=== PATIENT | male | born 1955 | race Caucasian/White ===

== ENCOUNTER → 2018-01-29 08:49 | Outpatient (CLI) | payer OTHER, SELFPAY ==
[2018-01-29 10:06] LABS: Add Manual Diff / Slide Review NO; Basophils Percent Auto 2.6 % (0-2); Eosinophils Percent Auto 11.2 % (2-4); Hematocrit 40.6 % (41-53); Hemoglobin 13.9 g/dL (13.5-17.5); Lymphocytes Percent Auto 13.3 % (25-40); Mean Corpuscular HGB Conc 34.2 % (30-36); Mean Corpuscular Hemoglobin 32.6 PG (26-34); Mean Corpuscular Volume 95.5 fL (80-100); Monocytes Percent Auto 12.2 % (3-14); Neutrophils Absolute Auto 2200 /uL (3000-5900); Neutrophils Percent Auto 60.7 % (50-75); Platelet Count 234 X10^3/uL (150-400); Red Blood Cell Count 4.25 X10^6/uL (4.5-5.9); Red Cell Distribution Width 12.8 % (11.6-14.8); White Blood Cell Count 3.6 X10^3/uL (4.5-11.0)
[2018-01-29 11:12] LABS: Alanine Aminotransferase 44 IU/L (21-72); Albumin 4.1 g/dL (3.5-5.0); Albumin Globulin Ratio 1.6 (1.0-2.8); Alkaline Phosphatase 71 U/L (38-126); Aspartate Aminotransferase 39 IU/L (17-59); Bilirubin Total 0.6 mg/dL (0.2-1.3); Blood Urea Nitrogen 14 mg/dL (9-20); Calcium 9.3 mg/dL (8.4-10.2); Carbon Dioxide 32 mmol/L (22-32); Chloride 102 mmol/L (98-107); Cholesterol 195 mg/dL (140-199); Estimated Glomerular Filt Rate > 60.0 mL/min (>60); Globulin 2.6 g/dL (1.7-4.1); Glucose 81 mg/dL (80-110); HEMOLYSIS < 15 (0-50); Potassium 4.6 mmol/L (3.4-5.1); Sodium 142 mmol/L (137-145); Total Protein 6.7 g/dL (6.3-8.2); Triglycerides 61 mg/dL (35-150)
[2018-01-29 11:26] LABS: HDL Cholesterol 126 mg/dL (40-60); LDL Cholesterol Calculated 57 mg/dL (<100)
[2018-01-29 11:43] LABS: Prostate Specific Antigen Scrn 0.575 ng/mL (0.1-4.0)
== END ==
PROVIDERS: PCP Internal Medicine; Visit Provider Internal Medicine
DX: I10 Essential (primary) hypertension (principal); E78.00 Pure hypercholesterolemia, unspecified; E29.1 Testicular hypofunction
CPT/HCPCS: 36415; 80053; 80061; 84403; 85025; G0103

== ENCOUNTER → 2018-08-28 08:50 | Outpatient (CLI) | payer OTHER, SELFPAY ==
[2018-08-28 10:09] LABS: Cholesterol 253 mg/dL (140-199); HDL Cholesterol 84 mg/dL (40-60); LDL Cholesterol Calculated 147 mg/dL (<100); Triglycerides 108 mg/dL (35-150)
[2018-08-28 10:41] LABS: Prostate Specific Antigen 0.594 ng/mL (0.10-4.00)
== END ==
PROVIDERS: PCP Internal Medicine; Visit Provider Specialist
DX: E78.00 Pure hypercholesterolemia, unspecified (principal); N40.1 Benign prostatic hyperplasia with lower urinary tract symptoms
CPT/HCPCS: 36415; 80061; 84153

== ENCOUNTER → 2018-10-03 08:30 | Outpatient (CLI) | payer OTHER, SELFPAY | PROVIDERS: PCP Internal Medicine; Visit Provider Internal Medicine | DX: E29.1 Testicular hypofunction (principal) | CPT/HCPCS: 36415; 84403 ==

== ENCOUNTER → 2018-11-03 13:51 | Outpatient (CLI) | payer OTHER, SELFPAY ==
[2018-11-03 15:06] LABS: Add Manual Diff / Slide Review NO; Basophils Absolute Auto 100 /uL (0-100); Basophils Percent Auto 1.1 % (0-2); Eosinophils Absolute Auto 200 /uL (0-450); Eosinophils Percent Auto 3.8 % (2-4); Hematocrit 40.9 % (41-53); Hemoglobin 13.9 g/dL (13.5-17.5); Lymphocytes Absolute Auto 700 /uL (1100-4500); Lymphocytes Percent Auto 12.6 % (25-40); Mean Corpuscular HGB Conc 33.9 % (30-36); Mean Corpuscular Hemoglobin 32.3 PG (26-34); Mean Corpuscular Volume 95.2 fL (80-100); Monocytes Absolute Auto 500 /uL (0-900); Monocytes Percent Auto 9.2 % (3-14); Neutrophils Absolute Auto 3800 /uL (1500-7000); Neutrophils Percent Auto 73.3 % (50-75); Platelet Count 250 X10^3/uL (150-400); Red Blood Cell Count 4.29 X10^6/uL (4.5-5.9); Red Cell Distribution Width 13.4 % (11.6-14.8); White Blood Cell Count 5.2 X10^3/uL (4.5-11.0)
[2018-11-03 16:53] LABS: Thyroid Stimulating Hormone 1.49 uIU/mL (0.47-4.68)
== END ==
PROVIDERS: PCP Internal Medicine; Visit Provider Internal Medicine
DX: R53.83 Other fatigue (principal)
CPT/HCPCS: 36415; 84443; 85025

== ENCOUNTER → 2018-11-10 16:38 | Outpatient (CLI) | payer OTHER, SELFPAY ==
[2018-11-10 18:24] LABS: Alanine Aminotransferase 15 IU/L (21-72); Albumin 4.1 g/dL (3.5-5.0); Albumin Globulin Ratio 1.5 (1.0-2.8); Alkaline Phosphatase 73 U/L (38-126); Aspartate Aminotransferase 26 IU/L (17-59); BUN Creatinine Ratio 21.4 (6-22); Bilirubin Total 0.6 mg/dL (0.2-1.3); Blood Urea Nitrogen 15 mg/dL (9-20); Calcium 9.5 mg/dL (8.4-10.2); Carbon Dioxide 31 mmol/L (22-32); Chloride 100 mmol/L (98-107); Estimated Glomerular Filt Rate > 60.0 mL/min (>60); Globulin 2.7 g/dL (1.7-4.1); Glucose 80 mg/dL (80-110); HEMOLYSIS < 15 (0-50); Potassium 4.5 mmol/L (3.4-5.1); Sodium 139 mmol/L (137-145); Total Protein 6.8 g/dL (6.3-8.2)
[2018-11-10 18:53] LABS: TSH w/ Reflex to FT4 1.32 uIU/mL (0.47-4.68)
== END ==
PROVIDERS: PCP Internal Medicine; Visit Provider Internal Medicine
DX: I10 Essential (primary) hypertension (principal); R53.83 Other fatigue
CPT/HCPCS: 36415; 80053; 84443

== ENCOUNTER → 2018-11-27 08:23 | Outpatient (CLI) | payer OTHER, SELFPAY ==
[2018-11-27 09:29] LABS: Albumin 3.8 g/dL (3.5-5.0)
[2018-11-29 11:43] LABS: Sex Hormone Binding Globulin 33 nmol/L (22-77)
[2018-11-30 20:14] LABS: Testosterone Free 30.7 pg/mL (35.0-155.0); Testosterone Total 232 ng/dL (250-1100)
== END ==
PROVIDERS: PCP Internal Medicine; Visit Provider Specialist
DX: F52.21 Male erectile disorder (principal)
CPT/HCPCS: 36415; 82040; 84270; 84402; 84403

== ENCOUNTER → 2019-02-11 09:14 | Outpatient (CLI) | payer OTHER, SELFPAY ==
[2019-02-11 11:18] LABS: Albumin 3.9 g/dL (3.5-5.0); Cholesterol 237 mg/dL (140-199); HDL Cholesterol 82 mg/dL (40-60); LDL Cholesterol Calculated 141 mg/dL (<100); Triglycerides 68 mg/dL (35-150)
[2019-02-13 20:33] LABS: Sex Hormone Binding Globulin 40 nmol/L (22-77)
[2019-02-15 14:09] LABS: Testosterone Free 33.4 pg/mL (35.0-155.0); Testosterone Total 197 ng/dL (250-1100)
== END ==
PROVIDERS: PCP Internal Medicine; Visit Provider Specialist
DX: E29.1 Testicular hypofunction (principal); E78.00 Pure hypercholesterolemia, unspecified; F52.21 Male erectile disorder
CPT/HCPCS: 36415; 80061; 82040; 84270; 84402; 84403

== ENCOUNTER → 2019-06-19 16:22 | Outpatient (CLI) | payer OTHER, SELFPAY ==
[2019-06-19 18:05] LABS: Prostate Specific Antigen 0.686 ng/mL (0.10-4.00)
== END ==
PROVIDERS: PCP Internal Medicine; Visit Provider Specialist
DX: N40.1 Benign prostatic hyperplasia with lower urinary tract symptoms (principal); E29.1 Testicular hypofunction
CPT/HCPCS: 36415; 84153; 84403

== ENCOUNTER → 2019-06-23 09:07 | Outpatient (CLI) | payer OTHER, SELFPAY ==
[2019-06-23 10:46] LABS: Alanine Aminotransferase 30 IU/L (<50); Aspartate Aminotransferase 29 IU/L (17-59); Cholesterol 126 mg/dL (140-199); HDL Cholesterol 40 mg/dL (40-60); LDL Cholesterol Calculated 75 mg/dL (<100); Triglycerides 54 mg/dL (35-150)
== END ==
PROVIDERS: PCP Internal Medicine; Visit Provider Internal Medicine
DX: E78.2 Mixed hyperlipidemia (principal)
CPT/HCPCS: 36415; 80061; 84450; 84460

== ENCOUNTER → 2019-07-06 10:09 | Outpatient (CLI) | payer OTHER, SELFPAY | PROVIDERS: PCP Internal Medicine; Referring Provider Internal Medicine; Visit Provider Internal Medicine | DX: M85.852 Other specified disorders of bone density and structure, left thigh (principal); E29.1 Testicular hypofunction; Z87.891 Personal history of nicotine dependence | CPT/HCPCS: 77080 ==

== ENCOUNTER → 2020-02-10 18:28 | Outpatient (ROUT) | payer OTHER, SELFPAY ==
[2020-02-10 19:54] LABS: Add Manual Diff / Slide Review NO; Basophils Absolute Auto 0 /uL (0-100); Basophils Percent Auto 1.1 % (0-2); Eosinophils Absolute Auto 300 /uL (0-450); Eosinophils Percent Auto 7.6 % (2-4); Hematocrit 43.9 % (41-53); Hemoglobin 14.9 g/dL (13.5-17.5); Lymphocytes Absolute Auto 1100 /uL (1100-4500); Lymphocytes Percent Auto 23.9 % (25-40); Mean Corpuscular HGB Conc 33.9 % (30-36); Mean Corpuscular Hemoglobin 32.1 PG (26-34); Mean Corpuscular Volume 94.4 fL (80-100); Monocytes Absolute Auto 500 /uL (0-900); Monocytes Percent Auto 10.7 % (3-14); Neutrophils Absolute Auto 2600 /uL (1500-7000); Neutrophils Percent Auto 56.7 % (50-75); Platelet Count 228 X10^3/uL (150-400); Red Blood Cell Count 4.65 X10^6/uL (4.5-5.9); Red Cell Distribution Width 12.9 % (11.6-14.8); White Blood Cell Count 4.5 X10^3/uL (4.5-11.0)
[2020-02-10 20:06] LABS: Alanine Aminotransferase 36 IU/L (<50); Albumin 4.2 g/dL (3.5-5.0); Albumin Globulin Ratio 1.5 (1.0-2.8); Alkaline Phosphatase 78 U/L (38-126); Aspartate Aminotransferase 41 IU/L (17-59); BUN Creatinine Ratio 14.3 (6-22); Bilirubin Total 0.8 mg/dL (0.2-1.3); Blood Urea Nitrogen 11 mg/dL (9-20); Calcium 9.3 mg/dL (8.4-10.2); Carbon Dioxide 29 mmol/L (22-32); Chloride 100 mmol/L (98-107); Estimated Glomerular Filt Rate > 60.0 mL/min (>60); Globulin 2.8 g/dL (1.7-4.1); Glucose 93 mg/dL (80-110); HEMOLYSIS < 15 (0-50); Potassium 4.1 mmol/L (3.4-5.1); Sodium 135 mmol/L (137-145)
== END ==
PROVIDERS: PCP Internal Medicine; Visit Provider Internal Medicine
DX: E78.2 Mixed hyperlipidemia (principal); E29.1 Testicular hypofunction; F32.9 Major depressive disorder, single episode, unspecified; I10 Essential (primary) hypertension
CPT/HCPCS: 80053; 85025

== ENCOUNTER → 2020-06-14 10:14 | Outpatient (CLI) | payer MEDICARE, SELFPAY ==
[2020-06-14 12:09] LABS: Prostate Specific Antigen 0.906 ng/mL (0.10-4.00)
[2020-06-19 22:36] LABS: Percent Free Testosterone 4.07 % (1.50-4.20); Testosterone Free 23.15 ng/dL (5.00-21.00); Testosterone Total 568.9 ng/dL (264.0-916.0)
== END ==
PROVIDERS: PCP Internal Medicine; Referring Provider Internal Medicine; Visit Provider Specialist
DX: R79.89 Other specified abnormal findings of blood chemistry (principal); Z12.5 Encounter for screening for malignant neoplasm of prostate
CPT/HCPCS: 36415; 84153; 84402; 84403; G0103

== ENCOUNTER → 2020-08-30 11:48 | Outpatient (CLI) | payer MEDICARE, SELFPAY ==
[2020-08-31 19:20] LABS: Hep C Virus Ab w/Reflex Quant NEGATIVE s/c (NEGATIVE)
== END ==
PROVIDERS: PCP Internal Medicine; Referring Provider Internal Medicine; Visit Provider Internal Medicine
DX: Z00.00 Encounter for general adult medical examination without abnormal findings (principal)
CPT/HCPCS: 36415; 86803

== ENCOUNTER → 2020-09-13 09:07 | Outpatient (CLI) | payer MEDICARE, SELFPAY ==
--- NOTE | 2020-09-13 | DI.US.S_ITS ---
PROCEDURE: US ABD AORTA ANEURYSM SCREEN INDICATIONS: ABDOMINAL AORTIC ANEURYSM SCREENING TECHNIQUE: Real time scanning was performed of the aorta and iliac arteries, with image documentation. COMPARISON: None. FINDINGS: Aorta: Proximal aortic diameter measures 2 cm. Mid-aorta measures 1.9 cm. Distal aortic diameter is 1.8 cm. Iliac arteries: Right common iliac artery measures 1 cm. Left common iliac artery measures 0.8 cm. Incidental note is made of an umbilical hernia which appears reducible and most likely contains fat. The hernia neck measures 0.6 x 0.8 cm. IMPRESSION: Negative for aneurysm. Apparent fat containing periumbilical hernia incidentally noted. Dictated by: Sukhi Katz M.D. on 09/13/2020 at 9:06 Approved by: Sukhi Katz M.D. on 09/13/2020 at 9:08
== END ==
PROVIDERS: PCP Internal Medicine; Referring Provider Internal Medicine; Visit Provider Internal Medicine
DX: Z13.6 Encounter for screening for cardiovascular disorders (principal); K42.9 Umbilical hernia without obstruction or gangrene
CPT/HCPCS: 76706

== ENCOUNTER 2021-01-12 09:58 | Emergency (ER) | payer MEDICARE, SELFPAY ==
[2021-01-12 10:05] VITALS: BP 176/90; PULSE 75; O2SAT 98
--- NOTE | 2021-01-12 10:05 | DI.RAD.S_ITS ---
PROCEDURE: XR CHEST 1V INDICATIONS: chest pain TECHNIQUE: One view of the chest was acquired. COMPARISON: None. FINDINGS: Surgical changes and devices: None. Lungs and pleura: Lungs are clear. No pleural effusions or pneumothorax. Mild hyperinflation noted. Mediastinum: Mediastinal contours appear normal. Heart size is normal. Bones and chest wall: No suspicious bony lesions. Overlying soft tissues appear unremarkable. IMPRESSION: Mild hyperinflation without acute cardiopulmonary findings Approved by: López Hollingsworth M.D. on 01/12/2021 at 10:31
[2021-01-12 10:06] VITALS: BP 176/90; PULSE 75; RESP 15; TEMP 36.9; O2SAT 96; BMI 24.4
[2021-01-12 10:13] LABS: Add Manual Diff / Slide Review NO; Basophils Absolute Auto 100 /uL (0-100); Basophils Percent Auto 0.8 % (0-2); Eosinophils Absolute Auto 200 /uL (0-450); Eosinophils Percent Auto 2.3 % (2-4); Hematocrit 44.3 % (41-53); Hemoglobin 15.1 g/dL (13.5-17.5); Lymphocytes Absolute Auto 700 /uL (1100-4500); Lymphocytes Percent Auto 10.5 % (25-40); Mean Corpuscular Hemoglobin 32.5 PG (26-34); Mean Corpuscular Volume 95.5 fL (80-100); Monocytes Absolute Auto 900 /uL (0-900); Monocytes Percent Auto 12.7 % (3-14); Neutrophils Absolute Auto 5200 /uL (1500-7000); Neutrophils Percent Auto 73.7 % (50-75); Platelet Count 201 X10^3/uL (150-400); Red Blood Cell Count 4.63 X10^6/uL (4.5-5.9); White Blood Cell Count 7.1 X10^3/uL (4.5-11.0)
--- NOTE | 2021-01-12 10:24 | ED_ITS ---
HPI - Chest Pain General Chief Complaint: Chest Pain Stated Complaint: Chest Pain/Pressure, Hurts when takes breath Time Seen by Provider: 01/12/21 10:06 Source: patient Mode of arrival: Ambulatory Limitations: no limitations History of Present Illness HPI narrative: 65-year-old male here for evaluation of right-sided chest/back discomfort that is also radiating to his neck. He states that it was a gradual onset that started yesterday. He has had some sort of discomfort for the past 24 hours however does get somewhat worse when he takes a deep breath. Not worse when he touches the area. Has never had heart issues in the past. Does have a history of high blood pressure. Has not tried anything for the symptoms prior to arrival. He did take his blood pressure medicines this morning. Related Data Home Medications Medication Instructions Recorded Confirmed amlodipine PO 01/04/18 08/12/19 blood-glucose meter [Retention Education MISC 01/04/18 08/12/19 Blood Glucose Monitor] irbesartan PO 01/04/18 08/12/19 statin PO 01/04/18 08/12/19 calcium carbonate 500 mg calcium 500 mg PO DAILY 06/24/20 (1,250 mg) tablet (Calcium 500) cholecalciferol (vitamin D3) 10 10 mcg PO DAILY 06/24/20 mcg (400 unit) capsule coenzyme Q10 10 mg capsule (Co 10 mg PO ONCE 06/24/20 Q-10) [id number] 200 mg-dha 125 1 cap PO DAILY 06/24/20 mg-epa 50 nl-jios-ngrd-zeax capsule rosuvastatin 20 mg tablet 20 mg PO DAILY 06/24/20 testosterone 20.25 mg/1.25 gram 1 pump TOPICAL DAILY 06/24/20 (1.62 %) transdermal gel pump Previous Rx's Medication Instructions Recorded sildenafil (pulm.hypertension) 20 20 mg PO TID PRN #30 tab 07/08/20 mg tablet Allergies Allergy/AdvReac Type Severity Reaction Status Date / Time Penicillins Allergy Unknown unknown Verified 01/12/21 10:16 Review of Systems Constitutional Constitutional: Reports as per HPI Eyes Eyes: Reports system reviewed and no additional complaints, except as documented ENT Ears, Nose, Mouth, and Throat: Reports system reviewed and no additional complaints, except as documented Cardiovascular Cardiovascular: Reports as per HPI Respiratory Respiratory: Reports as per HPI Gastrointestinal Gastrointestinal: Reports system reviewed and no additional complaints, except as documented Genitourinary Genitourinary: Reports system reviewed and no additional complaints, except as documented Musculoskeletal Musculoskeletal: Reports system reviewed and no additional complaints, except as documented Integumentary/Breasts Skin/Breast: Reports system reviewed and no additional complaints, except as documented Neurologic Neurologic: Reports system reviewed and no additional complaints, except as documented Hematologic/Lymphatic On Anticoagulants: No Allergic/Immunologic Allergic/Immunologic: Reports system reviewed and no additional complaints, except as documented Patient History Medical History BPH w urinary obs/LUTS Erectile dysfunction Finger laceration Hypertension Hypogonadism in male Surgical History History of circumcision History of vasectomy Family History Mother Cancer Father Coronary artery disease Social History marital status: number of children: 1 occupational status: previously employed Smoking Status: Former smoker alcohol intake: current caffeine: Yes Smoking Status: Former smoker alcohol intake frequency: holidays/special occasions only Substance Use Type: does not use Exam Initial Vital Signs Initial Vital Signs: Vital Signs Pulse Rate 75 01/12/21 10:05 Blood Pressure 176/90 H 01/12/21 10:05 Pulse Oximetry 98 01/12/21 10:05 Const General: cooperative and healthy appearing [facility] Head: normal to inspection and normocephalic Eyes General: appearance normal, both eyes and all related structures Neck Neck: normal visual inspection Chest Chest: No crepitus and No tenderness Resp Effort & Inspection: normal respiratory effort Auscultation: clear to auscultation bilaterally Cardio Rate: regular rate Rhythm: regular rhythm GI Inspection: normal to inspection Skin General: no rashes or lesions noted Neuro General: patient alert, patient awake and moves all extremities Extrem General: normal to inspection and capillary refill normal Psych Appearance: grossly normal and well kempt Course Orders Ordered: ED Orders 01/12/21 10:05 XR chest 1V Stat EKG-12 Lead Stat 01/12/21 10:10 BNP [NT-proBNP (BNP-Adult 18+)] Stat C-Reactive Protein Quant Stat Complete Blood Count AUTO DIFF Stat Comprehensive Metabolic Panel Stat D Dimer Stat Erythrocyte Sedimentation Rate Stat Lipase Stat Troponin & CK Cardiac Panel Stat Vital Signs Vital signs: Vital Signs - 8 hr 01/12/21 10:05 01/12/21 10:06 01/12/21 10:30 Temperature 98.5 F Pulse Rate 75 75 75 Respiratory Rate 15 15 Blood Pressure 176/90 H 176/90 H 144/89 H Pulse Oximetry 98 96 100 01/12/21 11:00 Temperature Pulse Rate 74 Respiratory Rate 16 Blood Pressure 146/85 H Pulse Oximetry 99 MDM - Chest Pain Lab Data Result diagrams: 01/12/21 10:10 01/12/21 10:10 Labs: Lab Results 01/12/21 01/12/21 01/12/21 Range/Units 10:10 10:10 10:10 WBC 7.1 (4.5-11.0) X10^3/uL RBC 4.63 (4.5-5.9) X10^6/uL Hgb 15.1 (13.5-17.5) g/dL Hct 44.3 (41-53) % MCV 95.5 (80-100) fL MCH 32.5 (26-34) PG MCHC 34.0 (30-36) % RDW 14.0 (11.6-14.8) % Plt Count 201 (150-400) X10^3/uL Neut % (Auto) 73.7 (50-75) % Lymph % (Auto) 10.5 L (25-40) % [place] % (Auto) 12.7 (3-14) % Eos % (Auto) 2.3 (2-4) % Baso % (Auto) 0.8 (0-2) % Neut # (Auto) 5200 (3390-6867) /uL Lymph # (Auto) 700 L (5480-2687) /uL [place] # (Auto) 900 (0-900) /uL Eos # (Auto) 200 (0-450) /uL Baso # (Auto) 100 (0-100) /uL ESR (0-15) MM/HR D-Dimer (<230) ng/mL Sodium 136 L (137-145) mmol/L Potassium 3.6 (3.4-5.1) mmol/L Chloride 98 (98-107) mmol/L Carbon Dioxide 32 (22-32) mmol/L BUN 12 (9-20) mg/dL Creatinine 0.77 (0.66-1.25) mg/dL Estimated GFR > 60.0 (>60) mL/min BUN/Creatinine Ratio 15.6 (6-22) Glucose 104 (80-110) mg/dL Calcium 9.8 (8.4-10.2) mg/dL Total Bilirubin 1.2 (0.2-1.3) mg/dL AST 34 (17-59) IU/L ALT 28 (<50) IU/L Alkaline Phosphatase 70 (38-126) U/L Total Creatine Kinase 63 (55-170) U/L CK-MB (CK-2) TNP CK-MB (CK-2) Rel Index TNP Troponin I < 0.012 (0.01-0.034) ng/mL C-Reactive Protein (<1.0) mg/dL NT-Pro-B Natriuret Pep 51 (<125) pg/mL Total Protein 7.4 (6.3-8.2) g/dL Albumin 4.2 (3.5-5.0) g/dL Globulin 3.2 (1.7-4.1) g/dL Albumin/Globulin Ratio 1.3 (1.0-2.8) Lipase 42 (23-300) U/L 01/12/21 01/12/21 01/12/21 Range/Units 10:10 10:10 10:10 WBC (4.5-11.0) X10^3/uL RBC (4.5-5.9) X10^6/uL Hgb (13.5-17.5) g/dL Hct (41-53) % MCV (80-100) fL MCH (26-34) PG MCHC (30-36) % RDW (11.6-14.8) % Plt Count (150-400) X10^3/uL Neut % (Auto) (50-75) % Lymph % (Auto) (25-40) % [place] % (Auto) (3-14) % Eos % (Auto) (2-4) % Baso % (Auto) (0-2) % Neut # (Auto) (9427-6493) /uL Lymph # (Auto) (3180-0212) /uL [place] # (Auto) (0-900) /uL Eos # (Auto) (0-450) /uL Baso # (Auto) (0-100) /uL ESR 11 (0-15) MM/HR D-Dimer < 200 (<230) ng/mL Sodium (137-145) mmol/L Potassium (3.4-5.1) mmol/L Chloride (98-107) mmol/L Carbon Dioxide (22-32) mmol/L BUN (9-20) mg/dL Creatinine (0.66-1.25) mg/dL Estimated GFR (>60) mL/min BUN/Creatinine Ratio (6-22) Glucose (80-110) mg/dL Calcium (8.4-10.2) mg/dL Total Bilirubin (0.2-1.3) mg/dL AST (17-59) IU/L ALT (<50) IU/L Alkaline Phosphatase (38-126) U/L Total Creatine Kinase (55-170) U/L CK-MB (CK-2) CK-MB (CK-2) Rel Index Troponin I (0.01-0.034) ng/mL C-Reactive Protein 1.1 H (<1.0) mg/dL NT-Pro-B Natriuret Pep (<125) pg/mL Total Protein (6.3-8.2) g/dL Albumin (3.5-5.0) g/dL Globulin (1.7-4.1) g/dL Albumin/Globulin Ratio (1.0-2.8) Lipase (23-300) U/L ECG Data Attestation: I personally reviewed and interpreted this ECG as follows: Interpretation: Initial EKG Sinus rhythm Ventricular rate of [address] elevations in V2 V3 without reciprocal changes Most likely early repolarization Repeat EKG Sinus rhythm Ventricular rate 99 Elevations in V2 V3 to 3 AVF No reciprocal changes MDM Narrative Medical decision making narrative: Patient has had consistent symptoms for the past 24 hours. His troponin is negative. His chest x-ray does not show any signs of a pneumonia nor pneumothorax. A bedside ultrasound also confirms no pneumothorax. He has no skin rashes over the area that would make us concerned for zoster. His LFTs are unremarkable. He has no right upper quadrant pain. I have low suspicion for referred pain from a intra-abdominal issue. He is not hypoxic. Not febrile. Not coughing. I did consider dissection however his D- dimer is negative, he has equal pulses bilateral, no neurologic changes. Have low suspicion for pulmonary embolism. Unsure the exact etiology of the patient's symptoms however feel patient could be safely discharged home. He will use ibuprofen as he does fit the diagnosis of pleurisy. No indication for antibiotics. He was given strict return precautions and follow-up instructions. He expressed understanding and agreement. Discharge Plan Departure Patient Disposition: Home Clinical Impression: Pleurisy, Atypical chest pain Instructions: Pleurisy Activity Restrictions/Additional Instructions: Your workup here in the emergency department is very reassuring. I recommend that you do start an anti-inflammatory such as Motrin/Naprosyn. Contact your primary doctor for follow-up and return to the emergency department for any new or worsening symptoms like we discussed. Prescriptions: No Action amlodipine PO RF: 0 blood-glucose meter MISC RF: 0 irbesartan PO RF: 0 statin PO RF: 0 rosuvastatin 20 mg tablet 20 mg PO DAILY RF: 0 testosterone 20.25 mg/1.25 gram (1.62 %) gel in metered-dose pump 1 pump topical DAILY RF: 0 coenzyme Q10 [Co Q-10] 10 mg capsule 10 mg PO ONCE RF: 0 calcium carbonate [Calcium 500] 500 mg calcium (1,250 mg) tablet 500 mg PO DAILY RF: 0 cholecalciferol (vitamin D3) 10 mcg (400 unit) capsule 10 mcg PO DAILY RF: 0 qp-rx-px4-asj-sem-yxmj-lut-george 200-125-50 mg capsule 1 cap PO DAILY RF: 0 sildenafil (pulm.hypertension) 20 mg tablet 20 mg PO TID PRN (Reason: sexual activity) Qty: 30 RF: 12 Referrals: Abdulkadir Ring MD [Primary Care Provider] -
[2021-01-12 10:30] VITALS: BP 144/89; PULSE 75; RESP 15; O2SAT 100
[2021-01-12 10:31] LABS: Alanine Aminotransferase 28 IU/L (<50); Albumin 4.2 g/dL (3.5-5.0); Albumin Globulin Ratio 1.3 (1.0-2.8); Alkaline Phosphatase 70 U/L (38-126); Aspartate Aminotransferase 34 IU/L (17-59); BUN Creatinine Ratio 15.6 (6-22); Bilirubin Total 1.2 mg/dL (0.2-1.3); Blood Urea Nitrogen 12 mg/dL (9-20); Calcium 9.8 mg/dL (8.4-10.2); Carbon Dioxide 32 mmol/L (22-32); Chloride 98 mmol/L (98-107); Creatine Kinase 63 U/L (55-170); Estimated Glomerular Filt Rate > 60.0 mL/min (>60); Globulin 3.2 g/dL (1.7-4.1); Glucose 104 mg/dL (80-110); HEMOLYSIS < 15 (0-50); Lipase 42 U/L (23-300); Potassium 3.6 mmol/L (3.4-5.1); Sodium 136 mmol/L (137-145); Total Protein 7.4 g/dL (6.3-8.2)
[2021-01-12 10:35] LABS: C-Reactive Protein Quant 1.1 mg/dL (<1.0)
[2021-01-12 10:37] LABS: Erythrocyte Sedimentation Rate 11 MM/HR (0-15)
[2021-01-12 10:38] LABS: D Dimer < 200 ng/mL (<230)
[2021-01-12 10:40] LABS: NT-proBNP (BNP-Adult 18+) 51 pg/mL (<125)
[2021-01-12 10:42] LABS: Troponin I < 0.012 ng/mL (0.01-0.034)
[2021-01-12 11:00] VITALS: BP 146/85; PULSE 74; RESP 16; O2SAT 99
[2021-01-12 11:30] VITALS: BP 149/90; PULSE 73; RESP 17; O2SAT 100
== END 2021-01-12 11:55 | disposition home or self-care (01) ==
PROVIDERS: Emergency Provider Emergency Medicine; PCP Internal Medicine
DX: R09.1 Pleurisy (principal); R07.89 Other chest pain
CPT/HCPCS: 36415; 71045; 80053; 82550; 83690; 83880; 84484; 85025; 85379; 85651; 86140; 93005; 99283; 99284

== ENCOUNTER → 2021-07-12 11:03 | Outpatient (CLI) | payer MEDICARE, SELFPAY ==
[2021-07-12 12:51] LABS: Prostate Specific Antigen Scrn 1.06 ng/mL (0.1-4.0)
== END ==
PROVIDERS: PCP Internal Medicine; Referring Provider Specialist; Visit Provider Specialist
DX: R97.20 Elevated prostate specific antigen [PSA] (principal)
CPT/HCPCS: 36415; 84153; G0103

== ENCOUNTER → 2022-01-10 15:03 | Outpatient (CLI) | payer MEDICARE, SELFPAY ==
[2022-01-10 16:08] LABS: Hematocrit 41.4 % (41-53); Hemoglobin 14.6 g/dL (13.5-17.5); Mean Corpuscular HGB Conc 35.3 % (30-36); Mean Corpuscular Hemoglobin 33.2 PG (26-34); Platelet Count 210 X10^3/uL (150-400); White Blood Cell Count 4.9 X10^3/uL (4.5-11.0)
[2022-01-10 17:05] LABS: Alanine Aminotransferase 31 IU/L (<50); Albumin 4.2 g/dL (3.5-5.0); Albumin Globulin Ratio 1.4 (1.0-2.8); Alkaline Phosphatase 65 U/L (38-126); Aspartate Aminotransferase 39 IU/L (17-59); BUN Creatinine Ratio 18.4 (6-22); Bilirubin Total 0.8 mg/dL (0.2-1.3); Blood Urea Nitrogen 14 mg/dL (9-20); Calcium 8.8 mg/dL (8.4-10.2); Carbon Dioxide 30 mmol/L (22-32); Chloride 101 mmol/L (98-107); Cholesterol 182 mg/dL (140-199); Estimated Glomerular Filt Rate > 60 mL/min (>60); Glucose 99 mg/dL (80-110); HDL Cholesterol 82 mg/dL (40-60); HEMOLYSIS 40 (0-50); LDL Cholesterol Calculated 65 mg/dL (<100); Sodium 135 mmol/L (137-145); Total Protein 7.2 g/dL (6.3-8.2); Triglycerides 175 mg/dL (35-150)
[2022-01-10 17:36] LABS: Testosterone 571 ng/dL (71.8-623)
[2022-01-10 17:37] LABS: TSH w/ Reflex to FT4 1.12 uIU/mL (0.47-4.68)
== END ==
PROVIDERS: PCP Internal Medicine; Referring Provider Specialist; Visit Provider Specialist
DX: E29.1 Testicular hypofunction (principal); I10 Essential (primary) hypertension; E78.2 Mixed hyperlipidemia
CPT/HCPCS: 36415; 80053; 80061; 84403; 84443; 85027

== ENCOUNTER → 2022-03-07 14:49 | Outpatient (CLI) | payer MEDICARE, SELFPAY ==
--- NOTE | 2022-03-07 14:50 | DI.RAD.S_ITS ---
PROCEDURE: XR LUMBAR SPINE 2-3V INDICATIONS: low back pain TECHNIQUE: Three views of the lumbar spine were acquired. COMPARISON: None. FINDINGS: Bones: Five arh-dle-rrxullg vertebrae are present. Trace right lateral subluxation L3 on L4. Trace retrolisthesis L2 on three. Mild to moderate multi disc height loss. Moderate facet arthropathy at the L5-S1 level. No vertebral body compression fractures. No suspicious bony lesions. Soft tissues: Overlying bowel gas pattern is normal. No suspicious soft tissue calcifications. IMPRESSION: Mild multilevel lumbar spondylosis and lumbosacral facet arthropathy. Dictated by: Maryam Begum M.D. on 03/07/2022 at 23:03 Approved by: Maryam Begum M.D. on 03/07/2022 at 23:05
== END ==
PROVIDERS: PCP Internal Medicine; Referring Provider Internal Medicine; Visit Provider Internal Medicine
DX: G89.29 Other chronic pain (principal); M54.50 Low back pain, unspecified; M47.816 Spondylosis without myelopathy or radiculopathy, lumbar region
CPT/HCPCS: 72100

== ENCOUNTER → 2022-04-30 10:02 | Outpatient (CLI) | payer MEDICARE, SELFPAY ==
[2022-04-30 13:23] LABS: COVID19 -Nasal RAPID Negative (Negative)
== END ==
PROVIDERS: PCP Internal Medicine; Visit Provider Surgery
DX: Z01.812 Encounter for preprocedural laboratory examination (principal); Z20.822 Contact with and (suspected) exposure to COVID-19
CPT/HCPCS: 87635; C9803

== ENCOUNTER 2022-05-01 07:13 | Day surgery (SDC) | payer MEDICARE, SELFPAY ==
[2022-05-01] VITALS (7 sets, daily range): BP systolic 109–147; BP diastolic 67–81; PULSE 65–81; RESP 14–20; TEMP 36.3–36.6; O2SAT 98–100; BMI 25.0
--- NOTE | 2022-05-01 | PATH_ITS ---
[facility] Accession Number: [id number] . 01 Material submitted: . colon - DESCENDING COLON . 01 Diagnosis: Descending Colon, Biopsy: Tubular adenoma. MRV 05/02/2022 1216 Local . 01 Electronically signed: . Maritza Iqbal MD, Pathologist NPI- [id number] . 01 Gross description: . DESCENDING COLON: Received in formalin is 1 fragment(s) of lu, soft tissue measuring 0.3 x 0.2 x 0.2 cm submitted entirely in 1 cassette(s) /BEENA 05/01/20222034 Local . 01 Pathologist provided ICD-10: D12.4 . 01 CPT . 141937 Specimen Comment: A courtesy copy of this report has been sent to [phone] Performed at: 01 [facility] [address] [place] [address] [id number] MD Amrik Chavarria MD Phone: [phone]
--- NOTE | 2022-05-01 07:42 | PM.HP.1 ---
History of Present Illness History of Present Illness Date Patient Seen: 05/01/22 Time Patient Seen: 07:42 Chief complaint: DX COLONOSCOPY W/POSS BX Narrative: The patient presents for colorectal screening. Colonoscopy 6 years ago significant for 3 benign polyps.. No personal or family history of colon cancer. On further history denies any recent gastrointestinal symptoms. No nausea, vomiting, abdominal pain, loss of appetite, unexplained weight loss, change in bowel habits, diarrhea, constipation, melena, hematochezia, or bright red blood per rectum. Patient History Medical History Advanced directives, counseling/discussion Anemia BPH w urinary obs/LUTS Chicken pox Eczematous dermatitis (~1999) Erectile dysfunction Essential hypertension Finger laceration Herpes Herpes zoster encephalitis History of colonic polyps Hypertension Hypogonadism in male Lymphopenia Measles Medicare annual wellness visit, initial Mixed hyperlipidemia Osteopenia Pneumothorax (~1974) Primary osteoarthritis involving multiple joints Venous (peripheral) insufficiency Surgical History History of circumcision History of vasectomy Family & Social History Family History Mother Cancer Father Coronary artery disease Tobacco & Substance use: Smoking Status Former smoker alcohol intake current alcohol intake frequency holiday/special occasion Substance Use Type does not use Meds Home Medications and Allergies Home Medications Medication Instructions Recorded Confirmed Type cholecalciferol (vitamin D3) 10 10 mcg PO DAILY 06/24/20 05/01/22 History mcg (400 unit) capsule coenzyme Q10 10 mg capsule (Co 10 mg PO ONCE 06/24/20 05/01/22 History Q-10) [id number]-zlu-hwaho2 200 mg-dha 125 1 cap PO DAILY 06/24/20 05/01/22 History mg-epa 50 nh-wvbv-uany-zeax capsule sildenafil (pulm.hypertension) 20 20 mg PO TID PRN sexual activity 08/14/21 05/01/22 Rx mg tablet #30 tabs amlodipine 5 mg tablet 5 mg PO DAILY #90 tabs 01/10/22 05/01/22 Rx ascorbic acid (vitamin C) 500 mg 500 mg PO DAILY 01/10/22 05/01/22 History tablet irbesartan 300 mg tablet 300 mg PO DAILY #90 tabs 01/10/22 05/01/22 Rx rosuvastatin 20 mg tablet 20 mg PO DAILY #90 tabs 01/10/22 05/01/22 Rx silymarin 1 cap PO DAILY 01/10/22 05/01/22 History triamcinolone acetonide 0.1 % 1 applic topical DAILY PRN eczema 01/10/22 05/01/22 Rx topical cream #30 grams testosterone 20.25 mg/1.25 gram 1 pump topical DAILY #75 grams 03/14/22 05/01/22 Rx (1.62 %) transdermal gel pump Allergies Allergy/AdvReac Type Severity Reaction Status Date / Time Penicillins Allergy Unknown unknown Verified 05/01/22 07:39 Exam Narrative Exam Narrative: General adult male alert oriented no acute distress Assessment & Plan Assessment & Plan narrative: The patient requires colorectal screening and colonoscopy is recommended. Technical details were discussed. Risks, benefits, alternatives explained. Risks including but not limited to myocardial infarction, aspiration, bleeding, pain, missed lesion, incomplete examination, need for further radiographic studies, colonic perforation, and need for major abdominal surgery were discussed. All questions were answered to their satisfaction, and they are in agreement with this plan. Time Spent With Patient Critical Care time: I spent a total of [] minutes of critical care time on this patient's care today; this time is exclusive of procedural time.
[2022-05-01] MEDS: LACTATED RINGERS 1,000 ML 200 ML IV (07:54)
--- NOTE | 2022-05-01 08:16 | PM.OP.COLON ---
Operative Date/Time/Diagnoses Date of procedure: 05/01/22 Time of procedure: 08:16 Pre-op diagnosis: Personal history of colonic polyps Post-op diagnosis: same Procedure & Clinicians Study performed: Colonoscopy and polypectomy Same procedure as scheduled: Yes Indications: Personal history of colonic polyps Surgeon: Wilfredo Jacobs Procedure Notes Procedure in detail: The history and physical was performed/updated and the patient is ASA class is 2. The procedure was discussed in detail with the patient. Potential risks complications including infection, bleeding, missed diagnosis, perforation, need for surgery, and were explained. Their questions were answered and informed consent was obtained. Patient was brought to the procedure room and placed standard monitoring equipment. The patient's vital signs were monitored continuously throughout the entire procedure. Prior to starting time-out was performed. The patient was placed in the left lateral recumbent position. Procedural sedation was administered by anesthesia. Examination began with a thorough inspection of the perianal area there was no evidence of fissures, fistulae, external hemorrhoids or cutaneous malignancy. The colonoscopy scope was then placed into the anal canal and was advanced to the cecum, which was identified by the ileocecal valve, the appendiceal orifice and the confluence of the taenia. The scope was then slowly withdrawn examining colon thoroughly in all directions, irrigating it of any residual stool. FINDINGS 1. Descending colon-3 mm flat polyp removed with biopsy forceps and cold snare 2. Internal hemorrhoids The patient tolerated the procedure well. They will be discharged once criteria are met. The prep was of good/excellent quality. The withdrawl time was 6 minutes. Specimen(s): other (Descending colonic polyp) Complications: none Impression: Colonic polyp Post-procedure Plan for aftercare: Follow-up dependent on pathology findings Disposition: same day surgery
== END 2022-05-01 09:23 | disposition home or self-care (01) ==
PROVIDERS: PCP Internal Medicine; Referring Provider Surgery; Visit Provider Surgery
PROC: 0DJD8ZZ Inspection of Lower Intestinal Tract, Via Natural or Artificial Opening Endoscopic (ICD-10-PCS; CPT 45378; principal; 2022-05-01 08:15)
DX: Z12.11 Encounter for screening for malignant neoplasm of colon (principal); Z86.010 Personal history of colon polyps; I10 Essential (primary) hypertension; K64.8 Other hemorrhoids; D12.4 Benign neoplasm of descending colon
CPT/HCPCS: 45385; 45380; J2704

== ENCOUNTER → 2022-09-05 11:52 | Outpatient (CLI) | payer MEDICARE, SELFPAY ==
--- NOTE | 2022-09-05 11:54 | DI.RAD.S_ITS ---
PROCEDURE: XR KNEE RT 3V INDICATIONS: Right knee pain TECHNIQUE: 3 views of the knee were acquired. COMPARISON: None. FINDINGS: Bones: No fractures or dislocations. No suspicious bony lesions. Soft tissues: No joint effusion. No suspicious soft tissue calcifications. IMPRESSION: No acute fracture. No osseous lesion. If symptoms and/or clinical suspicion for pathology persist, further assessment with repeat, or advanced imaging (e.g., CT, MRI, or bone scan) may be helpful for further assessment. Dictated by: Avis Morales M.D. on 09/05/2022 at 14:11 Transcribed by: MARIKA on 09/05/2022 at 14:12 Approved by: Avis Morales M.D. on 09/05/2022 at 16:47
== END ==
PROVIDERS: PCP Internal Medicine; Referring Provider Nurse Practitioner Family; Visit Provider Nurse Practitioner Family
DX: M25.561 Pain in right knee (principal)
CPT/HCPCS: 73562

== ENCOUNTER → 2022-09-11 11:07 | Outpatient (CLI) | payer MEDICARE, SELFPAY ==
[2022-09-11 12:26] LABS: Prostate Specific Antigen 1.27 ng/mL (0.10-4.00)
== END ==
PROVIDERS: PCP Internal Medicine; Referring Provider Specialist; Visit Provider Specialist
DX: N40.1 Benign prostatic hyperplasia with lower urinary tract symptoms (principal); N13.8 Other obstructive and reflux uropathy
CPT/HCPCS: 36415; 84153

== ENCOUNTER → 2022-11-04 12:09 | Outpatient (CLI) | payer MEDICARE, SELFPAY ==
--- NOTE | 2022-11-04 12:10 | DI.MRI.S_ITS ---
PROCEDURE: MR KNEE RT WO CON INDICATIONS: ongoing knee pain TECHNIQUE: Noncontrast sagittal PD fast spin echo and T2 fast spin echo with fat saturation, sagittal 3-D FLASH with fat saturation; coronal T1 spin echo and PD fast spin echo with fat saturation, and axial PD fast spin echo with fat saturation through the knee. COMPARISON: [facility], CR, XR KNEE RT 3V, 09/05/2022, 11:55. FINDINGS: Image quality: Excellent. Anterior Cruciate Ligament: Intact. Posterior Cruciate Ligament: Intact. Medial Collateral Ligament: Edema surrounding the proximal medial collateral ligament may be reactive or secondary to a low-grade sprain. No discontinuity of ligament fibers is seen. Lateral Collateral Ligament: Intact. Medial Meniscus: There is radial tearing of the posterior root attachment of the medial meniscus with mild extrusion of the meniscal body beyond the femorotibial joint line. Lateral Meniscus: Intact. Medial and Lateral Tendons: The semimembranosus tendon insertions and meniscocapsular junction appear intact. Visualized portions of the pes anserinus tendons appear normal. No abnormal bursal fluid. The long and short heads of the biceps femoris tendon appear intact. The popliteus tendon appears intact. No signs of posterolateral corner injury. Iliotibial band appears normal. Anterior Structures: The quadriceps and patellar tendons appear intact. No patellar subluxation. No femoral trochlear dysplasia or ventral trochlear prominence. No edema in the infrapatellar fat pad. Bones: Moderate osseous edema within the medial femoral condyle. A curvilinear hypointensity is seen along the subchondral plate at the central weight-bearing portion of the medial femoral condyle measuring up to 23 x 8 mm, consistent with an incomplete subchondral fracture. No significant collapse of the articular surface is seen. Medial Femorotibial Cartilage: Large area of high-grade versus full-thickness cartilage loss in the weight-bearing portion of the medial femoral condyle. High-grade partial-thickness cartilage loss is seen throughout the weight-bearing portion of the medial tibial plateau. Small marginal osteophytes are present. Lateral Femorotibial Cartilage: No focal cartilage defect. Patellofemoral Cartilage: Shallow cartilage fissuring and partial-thickness cartilage irregularity are seen at the medial and lateral patellar facets. Soft Tissues: A moderate joint effusion is present. There is a small medial popliteal cyst. Edema is seen extending inferiorly from the medial popliteal cyst that is suspicious for prior cyst rupture. A small amount of fluid is seen tracking along the popliteus tendon sheath. Nonspecific subcutaneous prepatellar soft tissue edema is present. The musculature surrounding the knee is normal in bulk. IMPRESSION: 1. Incomplete subchondral fracture at the weight-bearing portion of the medial femoral condyle moderate surrounding osseous edema. No significant collapse of the articular surface is seen. 2. Radial tearing of the medial meniscus at the posterior root attachment with extrusion of the meniscal body beyond the femorotibial joint line. 3. Soft tissue edema surrounding the proximal medial collateral ligament may be reactive or secondary to a low-grade sprain. 4. Large area of grade 3-4 chondromalacia throughout the weight-bearing portion of the medial femorotibial compartment. Mild grade 2 chondromalacia in the patellofemoral compartment. 5. Moderate joint effusion. Small medial popliteal cyst with signs of possible prior cyst rupture. Approved by: Silvio Rhoades M.D. on 11/05/2022 at 9:18
== END ==
PROVIDERS: PCP Internal Medicine; Referring Provider Internal Medicine; Visit Provider Internal Medicine
DX: S72.431A Displaced fracture of medial condyle of right femur, initial encounter for closed fracture (principal); S83.241A Other tear of medial meniscus, current injury, right knee, initial encounter; M22.41 Chondromalacia patellae, right knee; M25.461 Effusion, right knee; M71.21 Synovial cyst of popliteal space [Baker], right knee; M25.561 Pain in right knee
CPT/HCPCS: 73721

== ENCOUNTER → 2022-11-13 11:08 | Outpatient (CLI) | payer MEDICARE, SELFPAY ==
[2022-11-13 11:31] LABS: Add Manual Diff / Slide Review NO; Basophils Absolute Auto 0 /uL (0-100); Basophils Percent Auto 0.9 % (0-2); Eosinophils Absolute Auto 300 /uL (0-450); Eosinophils Percent Auto 7.5 % (2-4); Hematocrit 43.2 % (41-53); Lymphocytes Absolute Auto 700 /uL (1100-4500); Lymphocytes Percent Auto 16.6 % (25-40); Mean Corpuscular HGB Conc 34.6 % (30-36); Mean Corpuscular Hemoglobin 32.6 PG (26-34); Monocytes Absolute Auto 400 /uL (0-900); Monocytes Percent Auto 10.6 % (3-14); Neutrophils Absolute Auto 2700 /uL (1500-7000); Neutrophils Percent Auto 64.4 % (50-75); Platelet Count 221 X10^3/uL (150-400); Red Cell Distribution Width 13.2 % (11.6-14.8); White Blood Cell Count 4.1 X10^3/uL (4.5-11.0)
[2022-11-13 11:43] LABS: Alanine Aminotransferase 30 IU/L (<50); Albumin 4.1 g/dL (3.5-5.0); Albumin Globulin Ratio 1.4 (1.0-2.8); Alkaline Phosphatase 71 U/L (38-126); Aspartate Aminotransferase 28 IU/L (17-59); BUN Creatinine Ratio 15.2 (6-22); Bilirubin Total 0.7 mg/dL (0.2-1.3); Blood Urea Nitrogen 12 mg/dL (9-20); Calcium 8.9 mg/dL (8.4-10.2); Carbon Dioxide 31 mmol/L (22-32); Chloride 99 mmol/L (98-107); Estimated Glomerular Filt Rate > 60 mL/min (>60); Globulin 2.9 g/dL (1.7-4.1); Glucose 106 mg/dL (80-110); HEMOLYSIS < 15 (0-50); Sodium 137 mmol/L (137-145)
[2022-11-13 11:52] LABS: Erythrocyte Sedimentation Rate 8 MM/HR (0-15)
[2022-11-13 12:29] LABS: Appearance Urine UA CLEAR; Bilirubin Urine UA NEGATIVE (NEGATIVE); Color Urine UA YELLOW; Glucose Urine UA NEGATIVE (Negative); Ketones Urine UA NEGATIVE (NEGATIVE); Leukocyte Esterase Urine UA NEGATIVE (NEGATIVE); Nitrite Urine UA NEGATIVE (Negative); Occult Blood Urine UA NEGATIVE (Negative); Protein Urine UA NEGATIVE (Negative); Specific Gravity Urine UA <=1.005 (1.000-1.035); Urobilinogen Urine UA 0.2 E.U./dL (0.2)
[2022-11-13 12:55] LABS: Bacteria Urine None Seen; Culture Indicated Urine Cult Not Indicated; RBC Urine None Seen (0-5/HPF); Squamous Epithelial Cell Urine 0-1 /HPF (0-5/HPF); WBC Urine 0-1/HPF (0-5/HPF)
[2022-11-14 03:15] LABS: Labcorp Hemoglobin (Hb) A1c 5.3 % (4.8-5.6)
== END ==
PROVIDERS: PCP Internal Medicine; Referring Provider Orthopaedic Surgery; Visit Provider Orthopaedic Surgery
DX: Z01.818 Encounter for other preprocedural examination (principal); R73.9 Hyperglycemia, unspecified; Z01.812 Encounter for preprocedural laboratory examination; N39.0 Urinary tract infection, site not specified
CPT/HCPCS: 36415; 80053; 81001; 83036; 85025; 85651; 93005

== ENCOUNTER → 2023-09-04 13:50 | Outpatient (CLI) | payer MEDICARE, SELFPAY ==
[2023-09-04 15:12] LABS: Prostate Specific Antigen < 0.064 ng/mL (0.10-4.00)
== END ==
PROVIDERS: PCP Internal Medicine; Referring Provider Specialist; Visit Provider Specialist
DX: N40.1 Benign prostatic hyperplasia with lower urinary tract symptoms (principal); N13.8 Other obstructive and reflux uropathy
CPT/HCPCS: 36415; 84153

== ENCOUNTER → 2023-10-17 15:11 | Outpatient (CLI) | payer MEDICARE, SELFPAY ==
[2023-10-18 14:16] LABS: Prostate Specific Antigen 1.19 ng/mL (0.10-4.00)
== END ==
PROVIDERS: PCP Internal Medicine; Referring Provider Specialist; Visit Provider Specialist
DX: N40.1 Benign prostatic hyperplasia with lower urinary tract symptoms (principal); E29.1 Testicular hypofunction; N52.9 Male erectile dysfunction, unspecified; N13.8 Other obstructive and reflux uropathy
CPT/HCPCS: 36415; 84153; 84403

== ENCOUNTER → 2023-10-31 15:36 | Outpatient (CLI) | payer MEDICARE, SELFPAY ==
[2023-10-31 17:11] LABS: Testosterone 130 ng/dL (71.8-623)
== END ==
PROVIDERS: PCP Internal Medicine; Referring Provider Specialist; Visit Provider Specialist
DX: N52.9 Male erectile dysfunction, unspecified (principal); E29.1 Testicular hypofunction
CPT/HCPCS: 36415; 84403

== ENCOUNTER → 2024-01-23 14:06 | Outpatient (CLI) | payer MEDICARE, SELFPAY ==
[2024-01-23 14:26] LABS: Hematocrit 39.2 % (41-53); Hemoglobin 13.5 g/dL (13.5-17.5); Mean Corpuscular HGB Conc 34.5 % (30-36); Mean Corpuscular Hemoglobin 33.1 PG (26-34); Mean Corpuscular Volume 95.8 fL (80-100); Platelet Count 229 X10^3/uL (150-400); Red Blood Cell Count 4.09 X10^6/uL (4.5-5.9); Red Cell Distribution Width 14.2 % (11.6-14.8); White Blood Cell Count 5.6 X10^3/uL (4.5-11.0)
[2024-01-23 14:44] LABS: Alanine Aminotransferase 44 IU/L (<50); Albumin 4.2 g/dL (3.5-5.0); Albumin Globulin Ratio 1.7 (1.0-2.8); Alkaline Phosphatase 64 U/L (38-126); Aspartate Aminotransferase 42 IU/L (17-59); BUN Creatinine Ratio 22.5 (6-22); Bilirubin Total 0.7 mg/dL (0.2-1.3); Blood Urea Nitrogen 18 mg/dL (9-20); Calcium 9.1 mg/dL (8.4-10.2); Carbon Dioxide 23 mmol/L (22-32); Chloride 103 mmol/L (98-107); Cholesterol 199 mg/dL (140-199); Estimated Glomerular Filt Rate > 60 mL/min (>60); Globulin 2.5 g/dL (1.7-4.1); Glucose 83 mg/dL (80-110); HEMOLYSIS < 15 (0-50); Sodium 137 mmol/L (137-145); Total Protein 6.7 g/dL (6.3-8.2); Triglycerides 75 mg/dL (35-150)
[2024-01-23 15:01] LABS: HDL Cholesterol 108 mg/dL (40-60); LDL Cholesterol Calculated 76 mg/dL (<100); Prolactin 12.7 ng/mL (3.7-17.9)
[2024-01-23 15:04] LABS: Follicle Stimulating Hormone 10.2 mIU/mL; Luteinizing Hormone 2.68 mIU/mL
[2024-01-23 15:14] LABS: Prostate Specific Antigen 1.09 ng/mL (0.10-4.00)
[2024-01-23 15:18] LABS: TSH w/ Reflex to FT4 0.99 uIU/mL (0.47-4.68)
== END ==
PROVIDERS: PCP Internal Medicine; Referring Provider Internal Medicine; Visit Provider Internal Medicine
DX: N40.1 Benign prostatic hyperplasia with lower urinary tract symptoms (principal); N13.8 Other obstructive and reflux uropathy; E78.2 Mixed hyperlipidemia; E29.1 Testicular hypofunction; I10 Essential (primary) hypertension; E23.7 Disorder of pituitary gland, unspecified
CPT/HCPCS: 36415; 80053; 80061; 83001; 83002; 84146; 84153; 84402; 84403; 84443; 85027

== ENCOUNTER → 2024-03-30 09:36 | Outpatient (CLI) | payer MEDICARE, SELFPAY ==
--- NOTE | 2024-03-30 09:38 | DI.RAD.S_ITS ---
PROCEDURE: XR PELVIS 1-2V INDICATIONS: left low back/SI pain TECHNIQUE: AP view of the pelvis COMPARISON: None. FINDINGS: Mild osseous demineralization. No acute fracture or dislocation. No pelvic ring disruption. Mild bilateral hip and bilateral sacroiliac joint osteoarthritis, along with a subchondral cyst at the left central femoral head. Mild lower lumbar osteoarthritis. Surgical clips along the left hemiscrotum. IMPRESSION: Mild left hip and sacroiliac joint osteoarthritis. Dictated by: Micah Rodriguez M.D. on 03/30/2024 at 13:28 Approved by: Micah Rodriguez M.D. on 03/30/2024 at 13:29
--- NOTE | 2024-03-30 09:38 | DI.RAD.S_ITS ---
PROCEDURE: XR LUMBAR SPINE 6V W BENDING INDICATIONS: left low back/SI pain TECHNIQUE: 5 views of the lumbar spine acquired, including flexion and extension views. COMPARISON: [facility], , XR LUMBAR SPINE 2-3V, 03/07/2022, 14:52. FINDINGS: Five non rib-bearing lumbar vertebrae are present. When compared to 03/07/2022, there has been minimal increase and dextrocurvature of the lumbar spine with the apex at L3. This finding may be partly projectional. Otherwise, the lumbar vertebral body heights are preserved. Unchanged 5 millimeter retrolisthesis of L2 on L3. Mildly exaggerated lumbar lordosis. Multilevel intervertebral disc height loss, most conspicuous at L3-L4 and L4-L5. Moderate multilevel facet arthropathy, most conspicuous at L4-L5. Possible pars interarticularis defects at L5-S1. No dynamic instability on flexion-extension views. Partially identified right lower lobe calcified pulmonary granuloma. Mild bilateral sacroiliac joint osteoarthritis, greater on the left side. IMPRESSION: 1. No acute radiographic abnormality of the lumbar spine. 2. No dynamic instability on flexion-extension views. 3. Possible pars interarticularis defects at L5-S1. If clinically indicated, this finding can be confirmed with a CT of the lumbar spine without contrast. 4. Mild bilateral sacroiliac joint osteoarthritis. Dictated by: Micah Rodriguez M.D. on 03/30/2024 at 13:22 Approved by: Micah Rodriguez M.D. on 03/30/2024 at 13:27
== END ==
PROVIDERS: PCP Internal Medicine; Referring Provider Internal Medicine; Visit Provider Internal Medicine
DX: M16.12 Unilateral primary osteoarthritis, left hip (principal); M47.816 Spondylosis without myelopathy or radiculopathy, lumbar region; M47.818 Spondylosis without myelopathy or radiculopathy, sacral and sacrococcygeal region; M54.9 Dorsalgia, unspecified; G89.29 Other chronic pain
CPT/HCPCS: 72114; 72170

== ENCOUNTER 2024-05-27 11:28 | Emergency (ER) | payer MEDICARE, SELFPAY ==
[2024-05-27 11:32] VITALS: BP 143/81; PULSE 76; RESP 16; TEMP 36.5; O2SAT 98; BMI 22.1
--- NOTE | 2024-05-27 11:39 | DI.RAD.S_ITS ---
PROCEDURE: XR FOOT RT 2V INDICATIONS: foot px, unable to ambulate TECHNIQUE: 2 views of the foot were acquired. COMPARISON: None. FINDINGS: Bones: There is an oblique fracture involving a metatarsal shaft with slight dorsal displacement at fracture site only seen on lateral view. No other fracture or dislocation. Right foot joint osteoarthritis is seen. No suspicious bony lesions. Soft tissues: No tibiotalar joint effusion. Achilles tendon appears normal. IMPRESSION: Dorsally displaced oblique fracture involving possibly 3rd proximal metatarsal shaft suggest clinical correlation. No other fracture or dislocation. Right foot osteoarthritis. Dictated by: Presley Ryan M.D. on 05/27/2024 at 11:55 Approved by: Presley Ryan M.D. on 05/27/2024 at 11:58
--- NOTE | 2024-05-27 12:12 | ED.LOWEXIN ---
HPI - Extremity Injury (Lower) <Katerin Markham PA-C - Last Filed: 05/27/24 12:36> General Chief Complaint: Extremity Injury, Lower Stated Complaint: foot px Time Seen by Provider: 05/27/24 12:01 History of Present Illness HPI Narrative: 69-year-old male presents with right dorsal foot pain x1 week. He states he can not recall a specific injury, he normally wears [place] sandels. 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 He states the pain is about a 3/10 when walking. He spoke to his retired doctor friend who recommended a trial of ibuprofen 600 mg every 6 hours which he did for the last 3 days with no significant improvement. He has tried no ice, elevation or heat. He reports no disruption during sleep. He reports no prior injury to this foot but he endorses remote history of gout. He denies any other symptoms, no fever, no leg pain, calf pain, ankle pain. He endorses mild swelling over the dorsal aspect of his foot. All other systems are reviewed and are negative. Related Data Home Medications Medication Instructions Recorded Confirmed cholecalciferol (vitamin D3) 10 10 mcg PO DAILY 06/24/20 03/30/24 mcg (400 unit) capsule coenzyme Q10 10 mg capsule (Co 10 mg PO ONCE 06/24/20 03/30/24 Q-10) [id number] 200 mg-dha 125 1 cap PO DAILY 06/24/20 03/30/24 mg-epa 50 [id number] capsule ascorbic acid (vitamin C) 500 mg 500 mg PO DAILY 01/10/22 03/30/24 tablet silymarin 1 cap PO DAILY 01/10/22 03/30/24 Previous Rx's Medication Instructions Recorded triamcinolone acetonide 0.1 % 1 applic topical DAILY PRN eczema 01/10/22 topical cream #30 grams rosuvastatin 20 mg tablet 20 mg PO DAILY #90 tabs 04/12/23 sildenafil (pulm.hypertension) 20 20 mg PO TID PRN sexual activity 04/13/23 mg tablet #30 tabs trazodone 50 mg tablet 50 mg PO BEDTIME PRN sleep #90 tabs 07/03/23 sertraline 50 mg tablet 50 mg PO DAILY #90 tabs 08/21/24 irbesartan 300 mg tablet 300 mg PO DAILY #90 tabs 01/27/24 amlodipine 5 mg tablet 5 mg PO DAILY #90 tabs 02/20/24 testosterone 2 pump topical DAILY #75 grams 04/08/24 Allergies Allergy/AdvReac Type Severity Reaction Status Date / Time Penicillins Allergy Unknown unknown Verified 03/30/24 08:59 Review of Systems <Katerin Markham PA-C - Last Filed: 05/27/24 12:36> Review of Systems Narrative: All other systems reviewed and are negative. Patient History <Katerin Markham PA-C - Last Filed: 05/27/24 12:36> Medical History Depression, major, recurrent Incomplete bladder emptying Pneumothorax (~1974) Measles Herpes Chicken pox Primary osteoarthritis involving multiple joints History of colonic polyps Herpes zoster encephalitis Venous (peripheral) insufficiency Osteopenia Lymphopenia Essential hypertension Eczematous dermatitis (~1999) Mixed hyperlipidemia Erectile dysfunction BPH w urinary obs/LUTS Hypogonadism in male Hypertension Finger laceration Surgical History History of vasectomy History of circumcision Family History Mother Cancer Father Coronary artery disease Social History marital status: details: (Lindy - of pancreatic cancer 12/2023) number of children: 1 household members: spouse occupational status: previously employed Smoking Status: Former smoker alcohol intake: current caffeine: Yes Smoking Status: Former smoker alcohol intake frequency: 0-2 drinks per day Exam <Katerin Markham PA-C - Last Filed: 05/27/24 12:36> Initial Vital Signs Initial Vital Signs: Vital Signs Temperature 97.7 F 05/27/24 11:32 Pulse Rate 76 05/27/24 11:32 Respiratory Rate 16 05/27/24 11:32 Blood Pressure 143/81 H 05/27/24 11:32 Pulse Oximetry 98 05/27/24 11:32 Oxygen Delivery Method Room Air 05/27/24 11:32 Vital signs reviewed and are normal except for slight elevation in systolic blood pressure. Const General: cooperative, healthy appearing, comfortable, well developed, well groomed and No acute distress Resp Effort & Inspection: normal respiratory effort and able to speak in complete sentences Auscultation: clear to auscultation bilaterally, no rales, no rhonchi and no wheezes Cardio Rate: regular rate Rhythm: regular rhythm Skin General: no rashes or lesions noted, elasticity normal and turgor normal Extrem Right lower extremity: normal to inspection, full ROM, normal capillary refill, ankle Details: normal to inspection; no tenderness and no swelling and foot Details: normal capillary refill, tenderness, edema (Mild dorsal swelling, no pitting) and vascular exam Details: dorsalis pedis pulse present, posterior tibial pulse present and normal capillary refill; not cool and no cyanosis; no unusual warmth; no cyanosis Other: He has full weightbear without guarding. <Marylin Lawson MD - Last Filed: 05/27/24 15:20> Initial Vital Signs Initial Vital Signs: Vital Signs Temperature 97.7 F 05/27/24 11:32 Pulse Rate 76 05/27/24 11:32 Respiratory Rate 16 05/27/24 11:32 Blood Pressure 143/81 H 05/27/24 11:32 Pulse Oximetry 98 05/27/24 11:32 Oxygen Delivery Method Room Air 05/27/24 11:32 Course <Katerin Markham PA-C - Last Filed: 05/27/24 12:36> Orders Ordered: ED Orders 05/27/24 11:39 XR foot RT 2V Stat Vital Signs Vital signs: Vital Signs - 8 hr 05/27/24 11:32 05/27/24 12:45 Temperature 97.7 F 98 F Pulse Rate 76 75 Respiratory Rate 16 16 Blood Pressure 143/81 H 130/78 Pulse Oximetry 98 99 Oxygen Delivery Method Room Air Room Air <Marylin Lawson MD - Last Filed: 05/27/24 15:20> Orders Ordered: ED Orders 05/27/24 11:39 XR foot RT 2V Stat Vital Signs Vital signs: Vital Signs - 8 hr 05/27/24 11:32 05/27/24 12:45 Temperature 97.7 F 98 F Pulse Rate 76 75 Respiratory Rate 16 16 Blood Pressure 143/81 H 130/78 Pulse Oximetry 98 99 Oxygen Delivery Method Room Air Room Air MDM - Extremity Injury (Lower) <Katerin Markham PA-C - Last Filed: 05/27/24 12:36> Imaging Data Extremity x-ray #1: My Impression: Small fracture seen on the lateral view involving the 3rd proximal metatarsal shaft. Radiologist's Impression: PROCEDURE: XR FOOT RT 2V INDICATIONS: foot px, unable to ambulate TECHNIQUE: 2 views of the foot were acquired. COMPARISON: None. FINDINGS: Bones: There is an oblique fracture involving a metatarsal shaft with slight dorsal displacement at fracture site only seen on lateral view. No other fracture or dislocation. Right foot joint osteoarthritis is seen. No suspicious bony lesions. Soft tissues: No tibiotalar joint effusion. Achilles tendon appears normal. IMPRESSION: Dorsally displaced oblique fracture involving possibly 3rd proximal metatarsal shaft suggest clinical correlation. No other fracture or dislocation. Right foot osteoarthritis. Dictated by: Presley Ryan M.D. on 05/27/2024 at 11:55 Approved by: Presley Ryan M.D. on 05/27/2024 at 11:58 MDM Narrative Medical decision making narrative: He is fitted with a walking boot, I have asked him to wear this at all times including bedtime, may remove for showering but use a shower chair for safety, recommend against driving due to safety concerns. I have referred him to Orthopedics. It is nondisplaced it looks like it will do quite well in the next 4-6 weeks. He may elevate, use ice, Tylenol as needed for pain. Red flag warning signs reviewed in detail. Seek medical attention if you have any new symptoms or any new worrisome symptoms or worsening pain. Discharge Plan Departure Patient Disposition: Home Clinical Impression: Metatarsal fracture Qualifiers: Encounter type: initial encounter Metatarsal bone: third Fracture type: closed Fracture alignment: nondisplaced Laterality: right Qualified Code(s): S92.334A - Nondisplaced fracture of third metatarsal bone, right foot, initial encounter for closed fracture Instructions: DI for Foot Fracture Activity Restrictions/Additional Instructions: Please wear the walking boot at all times including bedtime. I recommend against driving as if you have to react or slammed on the brakes this could be challenging and it could be delayed use your best judgment. You may remove the boot for showering but I recommend a shower chair for safety. Please follow up with Orthopedics, the numbers listed below contact them in the morning and schedule that follow-up. You can elevate, you can ice, Tylenol for pain, avoid new injury, keep her activity light to guard against fall. I have listed [facility] they have several offices and they do have Podiatry, I listed the current on-call doctor of the day. Recommend follow up in the next couple of weeks. Prescriptions: No Action coenzyme Q10 [Co Q-10] 10 mg capsule 10 mg PO ONCE cholecalciferol (vitamin D3) 10 mcg (400 unit) capsule 10 mcg PO DAILY [id number]-izi-zcv-qoab-lut-george 200-125-50 mg capsule 1 cap PO DAILY Rx Instructions: give with food (meal/snack) rosuvastatin 20 mg tablet 20 mg PO DAILY Qty: 90 3RF sildenafil (pulm.hypertension) 20 mg tablet 20 mg PO TID PRN (Reason: sexual activity) Qty: 30 12RF Rx Instructions: administer doses at least 4-6 hours apart trazodone 50 mg tablet 50 mg PO BEDTIME PRN (Reason: sleep) Qty: 90 3RF irbesartan 300 mg tablet 300 mg PO DAILY Qty: 90 3RF amlodipine 5 mg tablet 5 mg PO DAILY Qty: 90 3RF testosterone 20.25 mg/1.25 gram (1.62 %) gel in metered-dose pump 2 pump topical DAILY Qty: 75 3RF Rx Instructions: apply 2 pump amount over max area of ONE upper arm and shoulder; [facility]: ascorbic acid (vitamin C) 500 mg tablet 500 mg PO DAILY silymarin 300 mg capsule 1 cap PO DAILY triamcinolone acetonide 0.1 % cream 1 applic topical DAILY PRN (Reason: eczema) Qty: 30 2RF sertraline 50 mg tablet 50 mg PO DAILY Qty: 90 1RF Referrals: Marcelo Hunt MD [Primary Care Provider] - López Delgado MD [Physician] - (Closed, 3rd metatarsal proximal shaft fracture. (ED ortho on-call of the day)) Stand Alone Forms: Patient Portal/API/Survey ED Sign-out <Marylin Lawson MD - Last Filed: 05/27/24 15:20> Cosign ED Attending Cosignature Attestation: I was immediately available in the department for consultation throughout this patient's visit. Marylin Lawson MD
[2024-05-27 12:45] VITALS: BP 130/78; PULSE 75; RESP 16; TEMP 36.6; O2SAT 99
== END 2024-05-27 12:47 | disposition home or self-care (01) ==
PROVIDERS: Emergency Provider Physician Assistant Medical; PCP Internal Medicine
DX: S92.334A Nondisplaced fracture of third metatarsal bone, right foot, initial encounter for closed fracture (principal); X58.XXXA Exposure to other specified factors, initial encounter
CPT/HCPCS: 73620; 99281; 99283

== ENCOUNTER → 2024-06-16 10:42 | Outpatient (CLI) | payer MEDICARE, SELFPAY ==
[2024-06-16 12:53] LABS: Appearance Urine UA SL CLOUDY; Bilirubin Urine UA NEGATIVE (NEGATIVE); Color Urine UA YELLOW; Glucose Urine UA NEGATIVE (Negative); Ketones Urine UA 1+ (NEGATIVE); Leukocyte Esterase Urine UA 3+ (NEGATIVE); Nitrite Urine UA NEGATIVE (Negative); Occult Blood Urine UA TRACE-INTACT (Negative); Protein Urine UA 1+ (Negative); Specific Gravity Urine UA 1.015 (1.000-1.035); Urobilinogen Urine UA 0.2 E.U./dL (0.2)
[2024-06-16 13:21] LABS: Urine Volume 10mL (spun)
[2024-06-16 13:22] LABS: Bacteria Urine Moderate (10-30); Culture Indicated Urine Specimen Cultured; RBC Urine 0-1/HPF (0-5/HPF); Squamous Epithelial Cell Urine None Seen (0-5/HPF); WBC Urine 30-100/HPF (0-5/HPF)
== END ==
PROVIDERS: PCP Internal Medicine; Referring Provider Internal Medicine; Visit Provider Internal Medicine
DX: R82.90 Unspecified abnormal findings in urine (principal)
CPT/HCPCS: 81001; 87077; 87086; 87186

== ENCOUNTER → 2024-06-19 15:05 | Outpatient (CLI) | payer MEDICARE, SELFPAY ==
--- NOTE | 2024-06-19 15:07 | DI.RAD.S_ITS ---
PROCEDURE: XR DEXA AXIAL SKELETON INDICATIONS: metatarsal fracture COMPARISON: , CR, XR DEXA AXIAL SKELETON, 07/06/2019, 10:23. FINDINGS: Lumbar Spine: Bone mineral density 1.150 g/cm2, T score 0.9, normal, change from previous 1.7%. Statistical significance of bone mineral density change cannot be determined due to dissimilar scan types or analysis method.. Left Femoral Neck: Bone mineral density is 0.704 g/cm2, T score -1.3, osteopenia. Left Hip: Bone mineral density 0.881 g/cm2, T score -0.5, normal, change from previous 1.1% Statistical significance of bone mineral density change cannot be determined due to dissimilar scan types or analysis method. Fracture Risk Calculation (when applicable): 10-year fracture risk of a major osteoporotic fracture 12 percent and of a hip fracture 3.2 percent. (T score greater or equal to -1.0 to: NORMAL) (T score from -1.1 to -2.4: OSTEOPENIA) (T score less than or equal to -2.5: OSTEOPOROSIS) IMPRESSION: Osteopenia elevates the patient's 10 year fracture risk as described. Minimal change in bone mineral density compared to the prior exam. Follow-up guidelines as follows: Osteoporosis: Consider a repeat DEXA and Vertebral Fracture Assessment (VFA) exam in 2 years or sooner if medically necessary, to reassess this patient's status. Osteopenia: Consider a repeat DEXA in 2-3 years to reassess this patient's status, or if there is a new clinical indication. Normal: Consider a repeat DEXA in 5 years or sooner, or if there is a new clinical indication. All treatment decisions require clinical judgment and consideration of individual patient factors, including patient preferences, comorbidities, previous drug use, risk factors not captured in the FRAX model (e.g., frailty, falls, vitamin D deficiency, increased bone turnover, interval significant decline in bone density ) and possible under- or over-estimation of fracture risk by FRAX. In addition, the NOF Guide recommends that FDA-approved medical therapies be considered in postmenopausal women and men age >= 50 years with a: * Hip or vertebral (clinical or morphometric) fracture * T-score of <=-2.5 at the spine or hip * Ten-year fracture probability by FRAX of >= 3% for hip fracture or >=20% for major osteoporotic fracture. Dictated by: Maryam Begum M.D. on 06/19/2024 at 17:19 Approved by: Maryam Begum M.D. on 06/19/2024 at 17:21
== END ==
LOC: RAD 15:06
PROVIDERS: PCP Internal Medicine; Referring Provider Internal Medicine; Visit Provider Internal Medicine
DX: M85.89 Other specified disorders of bone density and structure, multiple sites (principal)
CPT/HCPCS: 77080

== ENCOUNTER → 2024-09-05 14:40 | Outpatient (CLI) | payer MEDICARE, SELFPAY ==
--- NOTE | 2024-09-05 14:41 | DI.MRI.S_ITS ---
PROCEDURE: MR FOOT RT WO CON INDICATIONS: DISPLACED FX OF SECOND METATARSAL BONE TECHNIQUE: Multiphasic, multisequence MRI of the forefoot was performed, without intravenous contrast administration. COMPARISON: [facility] [place], CR, XR FOOT 3 VIEWS WEIGHT BEARING RIGHT, 09/01/2024, 15:38. FINDINGS: Image quality: Excellent. Bones and joints: Mild degenerative changes of 1st tarsometatarsal joint. There is mild marrow edema at the base of the 1st metatarsal and moderate marrow edema at the distal medial cuneiform, which may be a combination of degenerative changes with marrow contusion. There is a minimally displaced, oblique fracture of the 2nd metatarsal proximal diaphysis, with associated marked marrow edema extending from the 2nd metatarsal base to the distal diaphysis. There is a minimally impacted fracture of the 3rd metatarsal base, with associated marrow edema extending from the metatarsal base to the distal diaphysis. The 4th and 5th metatarsal are unremarkable. Soft tissues: The Lisfranc ligament is intact. The visualized plantar fascia, flexor tendons, and extensor tendons are unremarkable. Mild subcutaneous edema of the dorsal foot. Muscle edema about the 2nd and 3rd metatarsals. No fatty atrophy. Mild 1st intermetatarsal bursitis. IMPRESSION: 1. Minimally displaced, oblique fracture of the 2nd metatarsal proximal diaphysis, with marked marrow edema. 2. Minimally impacted fracture of the 3rd metatarsal base, with marked marrow edema. 3. Degenerative changes with or without marrow contusion at the medial cuneiform. Dictated by: Gypsy Lizama M.D. on 09/07/2024 at 10:03 Approved by: Gypsy Lizama M.D. on 09/07/2024 at 10:11
== END ==
PROVIDERS: PCP Internal Medicine; Referring Provider Physician Assistant; Visit Provider Physician Assistant
DX: S92.334A Nondisplaced fracture of third metatarsal bone, right foot, initial encounter for closed fracture (principal); S92.321D Displaced fracture of second metatarsal bone, right foot, subsequent encounter for fracture with routine healing; M71.9 Bursopathy, unspecified
CPT/HCPCS: 73718

== ENCOUNTER → 2024-09-21 12:48 | Outpatient (CLI) | payer MEDICARE, SELFPAY ==
[2024-09-21 13:19] LABS: Appearance Urine UA SL CLOUDY; Bilirubin Urine UA NEGATIVE (NEGATIVE); Color Urine UA YELLOW; Glucose Urine UA NEGATIVE (Negative); Ketones Urine UA NEGATIVE (NEGATIVE); Leukocyte Esterase Urine UA 2+ (NEGATIVE); Nitrite Urine UA NEGATIVE (Negative); Occult Blood Urine UA TRACE-INTACT (Negative); Protein Urine UA 1+ (Negative); Specific Gravity Urine UA 1.015 (1.000-1.035); Urobilinogen Urine UA 0.2 E.U./dL (0.2); pH Urine UA 5.5 (4.5-8.0)
[2024-09-21 13:22] LABS: Urine Volume 10mL (spun)
[2024-09-21 13:23] LABS: Bacteria Urine Few (2-10); Culture Indicated Urine Specimen Cultured; RBC Urine None Seen (0-5/HPF); Squamous Epithelial Cell Urine None Seen (0-5/HPF); WBC Urine 10-30/HPF (0-5/HPF)
[2024-09-21 16:57] LABS: Hematocrit 38.6 % (41-53); Hemoglobin 13.2 g/dL (13.5-17.5); Mean Corpuscular HGB Conc 34.2 % (30-36); Mean Corpuscular Hemoglobin 32.6 PG (26-34); Mean Corpuscular Volume 95.4 fL (80-100); Platelet Count 220 X10^3/uL (150-400); Red Blood Cell Count 4.05 X10^6/uL (4.5-5.9); Red Cell Distribution Width 13.4 % (11.6-14.8); White Blood Cell Count 5.3 X10^3/uL (4.5-11.0)
[2024-09-21 17:28] LABS: Alanine Aminotransferase 24 IU/L (<50); Albumin 4.1 g/dL (3.5-5.0); Albumin Globulin Ratio 1.5 (1.0-2.8); Alkaline Phosphatase 75 U/L (38-126); Aspartate Aminotransferase 36 IU/L (17-59); BUN Creatinine Ratio 26.4 (6-22); Bilirubin Total 0.6 mg/dL (0.2-1.3); Blood Urea Nitrogen 19 mg/dL (9-20); Calcium 8.9 mg/dL (8.4-10.2); Carbon Dioxide 33 mmol/L (22-32); Chloride 100 mmol/L (98-107); Estimated Glomerular Filt Rate > 60 mL/min (>60); Globulin 2.8 g/dL (1.7-4.1); Glucose 90 mg/dL (80-110); HEMOLYSIS < 15 (0-50); Potassium 4.1 mmol/L (3.4-5.1); Sodium 137 mmol/L (137-145); Total Protein 6.9 g/dL (6.3-8.2)
== END ==
PROVIDERS: PCP Internal Medicine; Referring Provider Internal Medicine; Visit Provider Internal Medicine
DX: R53.83 Other fatigue (principal); R30.0 Dysuria
CPT/HCPCS: 36415; 80053; 81001; 84443; 85027; 87077; 87086; 87186